=== PATIENT | female | born 1980 | race Caucasian/White ===

== ENCOUNTER 2018-08-11 10:41 | Emergency (ER) | payer OTHER, MEDICAID, SELFPAY ==
[2018-08-11 10:44] VITALS: BP 144/97; PULSE 79; RESP 18; TEMP 36.7; O2SAT 99
--- NOTE | 2018-08-11 11:01 | DI.RAD.S_ITS ---
PROCEDURE: XR CHEST 2V INDICATIONS: cough, shortness of breath for 2 weeks TECHNIQUE: 2 views of the chest were acquired. COMPARISON: None. FINDINGS: Surgical changes and devices: None. Lungs and pleura: Lungs are clear. No pleural effusions or pneumothorax. Mediastinum: Mediastinal contours are normal. Heart size is normal. Bones and chest wall: No suspicious bony abnormalities. Soft tissues appear unremarkable. IMPRESSION: Negative chest. No acute cardiopulmonary process is evident. Dictated by: Tyler Durand M.D. on 08/11/2018 at 10:49 Approved by: Tyler Durand M.D. on 08/11/2018 at 10:50
--- NOTE | 2018-08-11 11:05 | ED.SOB ---
HPI - SOB/Dyspnea <Dai Ortiz, NUTRITION PARTNER-BC - Last Filed: 08/11/18 14:49> General Chief Complaint: Shortness of Breath/Dyspnea Stated Complaint: Breathing Problems/Wheezing Time Seen by Provider: 08/11/18 10:46 Source: patient Mode of arrival: ambulatory Limitations: no limitations History of Present Illness The patient is a 38-year-old female smoker with history of wheezing and possibly asthma. She complains of worsening wheezing and increasing shortness of breath for the past 6 months. This has become worse over the past 6 days. She was seen and evaluated at [facility], on 08/07 where she had a negative CT for PE. She was started on inhaled steroids, and is not on any oral steroids. She has an albuterol inhaler at home, but has not used it yet today. She denies any fevers nausea vomiting or diarrhea other than some occasional posttussive vomiting with coughing fits. She complains of coughing fits so hard that she has muscle spasms in her chest. These happen with coughing fits only. She says that they extend around to her back and her muscles or just really ?sick of coughing for the past 6 months..She is concerned about possible exposure to fungus as well as chemicals at work. 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 Related Data Home Medications Medication Instructions Recorded Confirmed albuterol sulfate [ProAir HFA] 1 puff INHALATION PRN PRN 08/11/18 08/11/18 chlorthalidone 12.5 mg PO DAILY 08/11/18 08/11/18 duloxetine 30 mg PO QPM 08/11/18 08/11/18 fluticasone propion-salmeterol 1 puff INHALATION Q12H 08/11/18 08/11/18 [Wixela Inhub] gabapentin 300 mg PO TID 08/11/18 08/11/18 loratadine-pseudoephedrine 1 tab PO DAILY 08/11/18 08/11/18 [Claritin-D 24 Hour] propranolol 20 mg PO BID 08/11/18 08/11/18 vit C-s.[id number]-[id number] sd 1 cap PO QPM 08/11/18 08/11/18 [Tart Sandhu] Previous Rx's Medication Instructions Recorded ipratropium-albuterol 3 ml INHALATION Q4-6H PRN #90 ml 08/11/18 nebulizer accessories #1 each 08/11/18 nebulizer and compressor #1 each 08/11/18 prednisone 50 mg PO DAILY #5 tab 08/11/18 Allergies Allergy/AdvReac Type Severity Reaction Status Date / Time No Known Drug Allergies Allergy Verified 08/11/18 10:57 Review of Systems <EMY Alford - Last Filed: 08/11/18 14:49> Review of Systems GENERAL: Denies chills, fatigue, malaise, fever, sweats. HEENT: Denies sinus pain, ear pain, sore throat, difficulty swallowing, dizziness. RESPIRATORY: See HPI CARDIOVASCULAR: Denies chest pain, palpitations, orthopnea, edema, GASTROINTESTINAL: Denies nausea, vomiting, abdominal pain, diarrhea, constipation, melena. : Denies dysuria, frequency, incontinence, hematuria, urinary retention. MUSCULOSKELETAL: denies weakness, joint pain, or bony pain SKIN: Denies rash, skin lesions, or other NEUROLOGIC: Denies weakness, headache, numbness, change in speech, confusion, seizures, incoordination. PSYCHIATRIC: No concerning psychosocial issues. 12 point review of systems is negative except for those stated above PFSH <EMY Alford - Last Filed: 08/11/18 14:49> Surgical History History of third molar tooth extraction Social History Smoking Status: Current every day smoker Social History Smoking Status: Current every day smoker Exam <EMY Alford - Last Filed: 08/11/18 14:49> Narrative Exam Narrative: GENERAL: This is a well-nourished, well-developed patient, sitting on side of bed in no acute distress HEAD: Atraumatic. Normocephalic. No temporal or scalp tenderness. EYES: Pupils equal round and reactive. Extraocular motions intact. No scleral icterus. No injection or drainage. ENT: Nose without bleeding, purulent drainage or septal hematoma. Throat without erythema, tonsillar hypertrophy or exudate. Uvula midline. Airway patent. NECK: Trachea midline. No JVD or lymphadenopathy. Supple, nontender, no meningeal signs. CARDIOVASCULAR: Regular rate and rhythm without murmurs, gallops, or rubs. RESPIRATORY: Clear to auscultation. Breath sounds equal bilaterally. expiratory wheezes all kim bilaterally. No accessory muscle use. No stridor. Cough on exam. GASTROINTESTINAL: Abdomen soft, non-tender, nondistended. No hepato-splenomegaly, or palpable masses. No guarding. EXTREMITIES: No clubbing, cyanosis, or edema. No joint tenderness, effusion, or edema noted. BACK: Nontender without deformity or crepitance. No flank tenderness. NEURO: AOx3. SKIN: No rash or erythema. Initial Vital Signs Initial Vital Signs: Vital Signs Temperature 98.0 F 08/11/18 10:44 Pulse Rate 79 08/11/18 10:44 Respiratory Rate 18 08/11/18 10:44 Blood Pressure 144/97 H 08/11/18 10:44 Pulse Oximetry 99 08/11/18 10:44 <Kavita Wyatt MD - Last Filed: 08/11/18 19:50> Initial Vital Signs Initial Vital Signs: Vital Signs Temperature 98.0 F 08/11/18 10:44 Pulse Rate 79 08/11/18 10:44 Respiratory Rate 18 08/11/18 10:44 Blood Pressure 144/97 H 08/11/18 10:44 Pulse Oximetry 99 08/11/18 10:44 Scores <EMY Alford - Last Filed: 08/11/18 14:49> Wells' Criteria for PE Clinical signs and symptoms of PE: No PE is #1 Dx or equally likely: No Heart rate > 100: No Immobilization at least 3 days or surg in previous 4 weeks: No History of PE or DVT: No Hemoptysis: No Malignancy w/Treatment within 6 months or palliative: No Wells' PE Score total: 0 Course <EMY Alford - Last Filed: 08/11/18 14:49> Orders Ordered: ED Orders 08/11/18 10:56 RT Consult Eval and Treat Now 08/11/18 11:01 XR chest 2V Stat 08/11/18 11:37 Urine Microscopic Stat 08/11/18 12:32 Sputum Culture Stat Discontinued Medications Albuterol/Ipratropium (Duoneb) 3 ml INH NOW ONE Stop: 08/11/18 11:01 Last Admin: 08/11/18 11:11 Dose: 3 ml Benzonatate (Tessalon Perles) 100 mg PO NOW ONE Stop: 08/11/18 11:49 Last Admin: 08/11/18 12:24 Dose: 100 mg Prednisone (Deltasone) 60 mg PO NOW ONE Stop: 08/11/18 11:00 Last Admin: 08/11/18 11:12 Dose: 60 mg Vital Signs - 8 hr 08/11/18 12:24 Temperature 98.3 F Pulse Rate 72 Respiratory Rate 16 Blood Pressure [Left Arm] 120/76 Pulse Oximetry 98 <Kavita Wyatt MD - Last Filed: 08/11/18 19:50> Orders Ordered: ED Orders 08/11/18 10:56 RT Consult Eval and Treat Now 08/11/18 11:01 XR chest 2V Stat 08/11/18 11:37 Urine Microscopic Stat 08/11/18 12:32 Sputum Culture Stat Discontinued Medications Albuterol/Ipratropium (Duoneb) 3 ml INH NOW ONE Stop: 08/11/18 11:01 Last Admin: 08/11/18 11:11 Dose: 3 ml Benzonatate (Tessalon Perles) 100 mg PO NOW ONE Stop: 08/11/18 11:49 Last Admin: 08/11/18 12:24 Dose: 100 mg Prednisone (Deltasone) 60 mg PO NOW ONE Stop: 08/11/18 11:00 Last Admin: 08/11/18 11:12 Dose: 60 mg Vital Signs - 8 hr 08/11/18 12:24 Temperature 98.3 F Pulse Rate 72 Respiratory Rate 16 Blood Pressure [Left Arm] 120/76 Pulse Oximetry 98 MDM - SOB/Dyspnea <EMY Alford - Last Filed: 08/11/18 14:49> Lab Data Lab Results 08/11/18 Range/Units 11:37 Urine RBC 0-1/hpf (0-5/HPF) Urine WBC None seen (0-5/HPF) Ur Squamous Epith Cells 0-1 /hpf (0-5/HPF) Urine Bacteria None seen (None) Ur Culture Indicated? Cult not indicated Point of Care Testing Test Results Negative Urine Dip Bedside Urine Glucose Negative Bedside Urine Bilirubin - Negative Bedside Urine Ketone - Negative Urine Specific [place] 1.030 Bedside Urine Occult Blood +/- Bedside Urine pH 6.0 Bedside Urine Protein - Negative Bedside Urine Urobilinogen - Negative Bedside Urine Nitrite - Negative Bedside Urine Leukocytes - Negative Esterase Imaging Data Chest x-ray: Radiologist's impression: [address] [address] XRay Report Signed Patient: Luh Mukherjee [facility]#: [id number] : 07/28/1975Acct:[id number] Age/Sex: 43 / FDate of Service: 08/11/18 Loc: ED Accession Number: [id number] Procedure: XR chest 2V Ordering Provider: Kavita Wytat MD PROCEDURE: XR CHEST 2V INDICATIONS: heart racing, chest heaviness TECHNIQUE: 2 views of the chest were acquired. COMPARISON: None. FINDINGS: Surgical changes and devices: None. Lungs and pleura: Lungs are clear. No pleural effusions or pneumothorax. Mediastinum: Mediastinal contours are normal. Heart size is normal. Bones and chest wall: No suspicious bony abnormalities. Soft tissues appear unremarkable. IMPRESSION: 1. No acute cardiopulmonary disease. Dictated by: Christiano Sevilla M.D. on 08/11/2018 at 14:39 Approved by: Christiano Sevilla M.D. on 08/11/2018 at 14:39 [facility] Narrative Medical decision making narrative: The patient is a 38-year-old female who presents with progressive wheezing and shortness of breath for the past 6 months. She is a recent negative CTPA and is not tachycardic and not hypoxic. I did obtain another chest x-ray given her worsening over the past few days as well as a respiratory therapy consult nebulizer treatment. She was started on inhaled steroids without an oral steroid bridge other than her single dose IM. The patient was treated in the emergency department nebulizers and given spacer teaching by the respiratory therapist. Given the significance of her wheezing, I did discharge her with a prescription for a nebulizer as well as nebulizer treatments. I did place her on a burst of prednisone. I did discuss the importance of speaking with her primary care provider in following up on the pulmonology referral as they have made as I think this would likely benefit the patient. Discussed return precautions of worsening or no improvement. We did send off a sputum culture. Patient was ambulating around the emergency department prior to discharge. <Kavita Wyatt MD - Last Filed: 08/11/18 19:50> Lab Data Lab Results 08/11/18 Range/Units 11:37 Urine RBC 0-1/hpf (0-5/HPF) Urine WBC None seen (0-5/HPF) Ur Squamous Epith Cells 0-1 /hpf (0-5/HPF) Urine Bacteria None seen (None) Ur Culture Indicated? Cult not indicated Point of Care Testing Test Results Negative Urine Dip Bedside Urine Glucose Negative Bedside Urine Bilirubin - Negative Bedside Urine Ketone - Negative Urine Specific [place] 1.030 Bedside Urine Occult Blood +/- Bedside Urine pH 6.0 Bedside Urine Protein - Negative Bedside Urine Urobilinogen - Negative Bedside Urine Nitrite - Negative Bedside Urine Leukocytes - Negative Esterase Discharge Plan Departure Patient Disposition: Home Clinical Impression: Bilateral wheezing Discharge Date/Time: 08/11/18 13:15 Interventions: ED Discharge Assessment Last Done: 08/11/18 13:14 Instructions: DI for Asthma -- Adult, DI for Shortness of Breath, How to Manage Shortness of Breath Activity Restrictions/Additional Instructions: Your chest x-ray shows no pneumonia. I am giving a burst of steroids to help while you transition to use of inhaled steroids. Please use your albuterol inhaler with the provided spacer every 4 hours as needed. Please follow up with your primary care provider soon as possible. The sputum culture will result in about 48-36 hours. If anything comes up such as the fungus you are concerned about, this will come up in the culture. Please pace yourself and your activities. you may benefit from wearing a mask at work to help reduce chemical exposure. I have given you a work note for few days off of work in order to help your lungs heel. Please follow up with your PCP's referral for a strategic solutions consultant. I have also given you a prescription for home nebulizer as well as nebulizer treatments. You can use this instead of your inhaler. Come back to emergency department for any acute concerns such as concern of heart attack or stroke or severe difficulty breathing. Prescriptions: New prednisone 50 mg tablet 50 mg PO DAILY Qty: 5 RF: 0 ipratropium-albuterol 0.5 mg-3 mg(2.5 mg base)/3 mL solution for nebulization 3 ml INHALATION Q4-6H PRN (Reason: shortness of breath or wheezing) Qty: 90 RF: 0 nebulizer and compressor device .ROUTE .MEDSUPPLY Qty: 1 RF: 0 nebulizer accessories misc .ROUTE .MEDSUPPLY Qty: 1 RF: 0 No Action fluticasone propion-salmeterol [Wixela Inhub] 250-50 mcg/dose blister with device 1 puff Inhalation Q12H RF: 0 chlorthalidone 25 mg tablet 12.5 mg PO DAILY RF: 0 gabapentin 100 mg capsule 300 mg PO TID RF: 0 albuterol sulfate [ProAir HFA] 90 mcg/actuation HFA aerosol inhaler 1 puff Inhalation PRN PRN (Reason: Shortness Of Breath) RF: 0 propranolol 20 mg tablet 20 mg PO BID RF: 0 duloxetine 30 mg capsule,delayed release(DR/EC) 30 mg PO QPM RF: 0 loratadine-pseudoephedrine [Claritin-D 24 Hour] 10-240 mg Tablet Extended Release 24 Hr 1 tab PO DAILY RF: 0 Tart Sandhu 28-515-75-75-20 mg Capsule 1 cap PO QPM RF: 0 Stand Alone Forms: Work Release Note
--- NOTE | 2018-08-11 11:08 | ED_ITS ---
HPI - SOB/Dyspnea <Dai Ortiz, [employer] - Last Filed: 08/11/18 14:49> General Chief Complaint: Shortness of Breath/Dyspnea Stated Complaint: Breathing Problems/Wheezing Time Seen by Provider: 08/11/18 10:46 Source: patient Mode of arrival: ambulatory Limitations: no limitations History of Present Illness The patient is a 38-year-old female smoker with history of wheezing and possibly asthma. She complains of worsening wheezing and increasing shortness of breath for the past 6 months. This has become worse over the past 6 days. She was seen and evaluated at [place], on 08/07 where she had a negative CT for PE. She was started on inhaled steroids, and is not on any oral steroids. She has an albuterol inhaler at home, but has not used it yet today. She denies any fevers nausea vomiting or diarrhea other than some occasional posttussive vomiting with coughing fits. She complains of coughing fits so hard that she has muscle spasms in her chest. These happen with coughing fits only. She says that they extend around to her back and her muscles or just really ?sick of coughing for the past 6 months..She is concerned about possible exposure to fungus as well as chemicals at work. 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 Related Data Home Medications Medication Instructions Recorded Confirmed albuterol sulfate [ProAir HFA] 1 puff INHALATION PRN PRN 08/11/18 08/11/18 chlorthalidone 12.5 mg PO DAILY 08/11/18 08/11/18 duloxetine 30 mg PO QPM 08/11/18 08/11/18 fluticasone propion-salmeterol 1 puff INHALATION Q12H 08/11/18 08/11/18 [Wixela Inhub] gabapentin 300 mg PO TID 08/11/18 08/11/18 loratadine-pseudoephedrine 1 tab PO DAILY 08/11/18 08/11/18 [Claritin-D 24 Hour] propranolol 20 mg PO BID 08/11/18 08/11/18 vit C-s.jimlhg-[id number]-thhla sd 1 cap PO QPM 08/11/18 08/11/18 [Tart Sandhu] Previous Rx's Medication Instructions Recorded ipratropium-albuterol 3 ml INHALATION Q4-6H PRN #90 ml 08/11/18 nebulizer accessories #1 each 08/11/18 nebulizer and compressor #1 each 08/11/18 prednisone 50 mg PO DAILY #5 tab 08/11/18 Allergies Allergy/AdvReac Type Severity Reaction Status Date / Time No Known Drug Allergies Allergy Verified 08/11/18 10:57 Review of Systems <EMY Alford - Last Filed: 08/11/18 14:49> Review of Systems GENERAL: Denies chills, fatigue, malaise, fever, sweats. HEENT: Denies sinus pain, ear pain, sore throat, difficulty swallowing, dizziness. RESPIRATORY: See HPI CARDIOVASCULAR: Denies chest pain, palpitations, orthopnea, edema, GASTROINTESTINAL: Denies nausea, vomiting, abdominal pain, diarrhea, constipation, melena. : Denies dysuria, frequency, incontinence, hematuria, urinary retention. MUSCULOSKELETAL: denies weakness, joint pain, or bony pain SKIN: Denies rash, skin lesions, or other NEUROLOGIC: Denies weakness, headache, numbness, change in speech, confusion, seizures, incoordination. PSYCHIATRIC: No concerning psychosocial issues. 12 point review of systems is negative except for those stated above PFSH <EMY Alford - Last Filed: 08/11/18 14:49> Surgical History History of third molar tooth extraction Social History Smoking Status: Current every day smoker Social History Smoking Status: Current every day smoker Exam <EMY Alford - Last Filed: 08/11/18 14:49> Narrative Exam Narrative: GENERAL: This is a well-nourished, well-developed patient, sitting on side of bed in no acute distress HEAD: Atraumatic. Normocephalic. No temporal or scalp tenderness. EYES: Pupils equal round and reactive. Extraocular motions intact. No scleral icterus. No injection or drainage. ENT: Nose without bleeding, purulent drainage or septal hematoma. Throat without erythema, tonsillar hypertrophy or exudate. Uvula midline. Airway patent. NECK: Trachea midline. No JVD or lymphadenopathy. Supple, nontender, no meningeal signs. CARDIOVASCULAR: Regular rate and rhythm without murmurs, gallops, or rubs. RESPIRATORY: Clear to auscultation. Breath sounds equal bilaterally. expiratory wheezes all kim bilaterally. No accessory muscle use. No stridor. Cough on exam. GASTROINTESTINAL: Abdomen soft, non-tender, nondistended. No hepato- splenomegaly, or palpable masses. No guarding. EXTREMITIES: No clubbing, cyanosis, or edema. No joint tenderness, effusion, or edema noted. BACK: Nontender without deformity or crepitance. No flank tenderness. NEURO: AOx3. SKIN: No rash or erythema. Initial Vital Signs Initial Vital Signs: Vital Signs Temperature 98.0 F 08/11/18 10:44 Pulse Rate 79 08/11/18 10:44 Respiratory Rate 18 08/11/18 10:44 Blood Pressure 144/97 H 08/11/18 10:44 Pulse Oximetry 99 08/11/18 10:44 <Kavita Wyatt MD - Last Filed: 08/11/18 19:50> Initial Vital Signs Initial Vital Signs: Vital Signs Temperature 98.0 F 08/11/18 10:44 Pulse Rate 79 08/11/18 10:44 Respiratory Rate 18 08/11/18 10:44 Blood Pressure 144/97 H 08/11/18 10:44 Pulse Oximetry 99 08/11/18 10:44 Scores <EMY Alford - Last Filed: 08/11/18 14:49> Wells' Criteria for PE Clinical signs and symptoms of PE: No PE is #1 Dx or equally likely: No Heart rate > 100: No Immobilization at least 3 days or surg in previous 4 weeks: No History of PE or DVT: No Hemoptysis: No Malignancy w/Treatment within 6 months or palliative: No Wells' PE Score total: 0 Course <EMY Alford - Last Filed: 08/11/18 14:49> Orders Ordered: ED Orders 08/11/18 10:56 RT Consult Eval and Treat Now 08/11/18 11:01 XR chest 2V Stat 08/11/18 11:37 Urine Microscopic Stat 08/11/18 12:32 Sputum Culture Stat Discontinued Medications Albuterol/Ipratropium (Duoneb) 3 ml INH NOW ONE Stop: 08/11/18 11:01 Last Admin: 08/11/18 11:11 Dose: 3 ml Benzonatate (Tessalon Perles) 100 mg PO NOW ONE Stop: 08/11/18 11:49 Last Admin: 08/11/18 12:24 Dose: 100 mg Prednisone (Deltasone) 60 mg PO NOW ONE Stop: 08/11/18 11:00 Last Admin: 08/11/18 11:12 Dose: 60 mg Vital Signs - 8 hr 08/11/18 12:24 Temperature 98.3 F Pulse Rate 72 Respiratory Rate 16 Blood Pressure [Left Arm] 120/76 Pulse Oximetry 98 <Kavita Wyatt MD - Last Filed: 08/11/18 19:50> Orders Ordered: ED Orders 08/11/18 10:56 RT Consult Eval and Treat Now 08/11/18 11:01 XR chest 2V Stat 08/11/18 11:37 Urine Microscopic Stat 08/11/18 12:32 Sputum Culture Stat Discontinued Medications Albuterol/Ipratropium (Duoneb) 3 ml INH NOW ONE Stop: 08/11/18 11:01 Last Admin: 08/11/18 11:11 Dose: 3 ml Benzonatate (Tessalon Perles) 100 mg PO NOW ONE Stop: 08/11/18 11:49 Last Admin: 08/11/18 12:24 Dose: 100 mg Prednisone (Deltasone) 60 mg PO NOW ONE Stop: 08/11/18 11:00 Last Admin: 08/11/18 11:12 Dose: 60 mg Vital Signs - 8 hr 08/11/18 12:24 Temperature 98.3 F Pulse Rate 72 Respiratory Rate 16 Blood Pressure [Left Arm] 120/76 Pulse Oximetry 98 MDM - SOB/Dyspnea <EMY Alford - Last Filed: 08/11/18 14:49> Lab Data Lab Results 08/11/18 Range/Units 11:37 Urine RBC 0-1/hpf (0-5/HPF) Urine WBC None seen (0-5/HPF) Ur Squamous Epith Cells 0-1 /hpf (0-5/HPF) Urine Bacteria None seen (None) Ur Culture Indicated? Cult not indicated Point of Care Testing Test Results Negative Urine Dip Bedside Urine Glucose Negative Bedside Urine Bilirubin - Negative Bedside Urine Ketone - Negative Urine Specific [place] 1.030 Bedside Urine Occult Blood +/- Bedside Urine pH 6.0 Bedside Urine Protein - Negative Bedside Urine Urobilinogen - Negative Bedside Urine Nitrite - Negative Bedside Urine Leukocytes - Negative Esterase Imaging Data Chest x-ray: Radiologist's impression: [address] [address] XRay Report Signed Patient: Luh Mukherjee [facility]#: [id number] : 07/28/1975Acct:[id number] Age/Sex: 43 / FDate of Service: 08/11/18 Loc: ED Accession Number: [id number] Procedure: XR chest 2V Ordering Provider: Kavita Wyatt MD PROCEDURE: XR CHEST 2V INDICATIONS: heart racing, chest heaviness TECHNIQUE: 2 views of the chest were acquired. COMPARISON: None. FINDINGS: Surgical changes and devices: None. Lungs and pleura: Lungs are clear. No pleural effusions or pneumothorax. Mediastinum: Mediastinal contours are normal. Heart size is normal. Bones and chest wall: No suspicious bony abnormalities. Soft tissues appear unremarkable. IMPRESSION: 1. No acute cardiopulmonary disease. Dictated by: Christiano Sevilla M.D. on 08/11/2018 at 14:39 Approved by: Christiano Sevilla M.D. on 08/11/2018 at 14:39 [facility] Narrative Medical decision making narrative: The patient is a 38-year-old female who presents with progressive wheezing and shortness of breath for the past 6 months. She is a recent negative CTPA and is not tachycardic and not hypoxic. I did obtain another chest x-ray given her worsening over the past few days as well as a respiratory therapy consult nebulizer treatment. She was started on inhaled steroids without an oral steroid bridge other than her single dose IM. The patient was treated in the emergency department nebulizers and given spacer teaching by the respiratory therapist. Given the significance of her wheezing, I did discharge her with a prescription for a nebulizer as well as nebulizer treatments. I did place her on a burst of prednisone. I did discuss the importance of speaking with her primary care provider in following up on the pulmonology referral as they have made as I think this would likely benefit the patient. Discussed return precautions of worsening or no improvement. We did send off a sputum culture. Patient was ambulating around the emergency department prior to discharge. <Kavita Wyatt MD - Last Filed: 08/11/18 19:50> Lab Data Lab Results 08/11/18 Range/Units 11:37 Urine RBC 0-1/hpf (0-5/HPF) Urine WBC None seen (0-5/HPF) Ur Squamous Epith Cells 0-1 /hpf (0-5/HPF) Urine Bacteria None seen (None) Ur Culture Indicated? Cult not indicated Point of Care Testing Test Results Negative Urine Dip Bedside Urine Glucose Negative Bedside Urine Bilirubin - Negative Bedside Urine Ketone - Negative Urine Specific [place] 1.030 Bedside Urine Occult Blood +/- Bedside Urine pH 6.0 Bedside Urine Protein - Negative Bedside Urine Urobilinogen - Negative Bedside Urine Nitrite - Negative Bedside Urine Leukocytes - Negative Esterase Discharge Plan Departure Patient Disposition: Home Clinical Impression: Bilateral wheezing Discharge Date/Time: 08/11/18 13:15 Interventions: ED Discharge Assessment Last Done: 08/11/18 13:14 Instructions: DI for Asthma -- Adult, DI for Shortness of Breath, How to Manage Shortness of Breath Activity Restrictions/Additional Instructions: Your chest x-ray shows no pneumonia. I am giving a burst of steroids to help while you transition to use of inhaled steroids. Please use your albuterol inhaler with the provided spacer every 4 hours as needed. Please follow up with your primary care provider soon as possible. The sputum culture will result in about 48-36 hours. If anything comes up such as the fungus you are concerned about, this will come up in the culture. Please pace yourself and your activities. you may benefit from wearing a mask at work to help reduce chemical exposure. I have given you a work note for few days off of work in order to help your lungs heel. 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 I have also given you a prescription for home nebulizer as well as nebulizer treatments. You can use this instead of your inhaler. Come back to emergency department for any acute concerns such as concern of heart attack or stroke or severe difficulty breathing. Prescriptions: New prednisone 50 mg tablet 50 mg PO DAILY Qty: 5 RF: 0 ipratropium-albuterol 0.5 mg-3 mg(2.5 mg base)/3 mL solution for nebulization 3 ml INHALATION Q4-6H PRN (Reason: shortness of breath or wheezing) Qty: 90 RF: 0 nebulizer and compressor device .ROUTE .MEDSUPPLY Qty: 1 RF: 0 nebulizer accessories misc .ROUTE .MEDSUPPLY Qty: 1 RF: 0 No Action fluticasone propion-salmeterol [Wixela Inhub] 250-50 mcg/dose blister with device 1 puff Inhalation Q12H RF: 0 chlorthalidone 25 mg tablet 12.5 mg PO DAILY RF: 0 gabapentin 100 mg capsule 300 mg PO TID RF: 0 albuterol sulfate [ProAir HFA] 90 mcg/actuation HFA aerosol inhaler 1 puff Inhalation PRN PRN (Reason: Shortness Of Breath) RF: 0 propranolol 20 mg tablet 20 mg PO BID RF: 0 duloxetine 30 mg capsule,delayed release(DR/EC) 30 mg PO QPM RF: 0 loratadine-pseudoephedrine [Claritin-D 24 Hour] 10-240 mg Tablet Extended Release 24 Hr 1 tab PO DAILY RF: 0 Tart Sandhu 05-520-01-75-20 mg Capsule 1 cap PO QPM RF: 0 Stand Alone Forms: Work Release Note
[2018-08-11] MEDS: ALBUTEROL/IPRATROPIUM 3 ML AMPUL INH (11:11)
[2018-08-11 11:12] VITALS: PULSE 71; RESP 12; O2SAT 98
[2018-08-11] MEDS: predniSONE 20 MG TABLET 60 MG PO (11:12)
[2018-08-11 11:49] LABS: Bacteria Urine None Seen; WBC Urine None Seen (0-5/HPF)
[2018-08-11 12:03] LABS: Culture Indicated Urine Cult Not Indicated; RBC Urine 0-1/HPF (0-5/HPF); Squamous Epithelial Cell Urine 0-1 /HPF (0-5/HPF)
[2018-08-11 12:24] VITALS: BP 120/76; PULSE 72; RESP 16; TEMP 36.8; O2SAT 98
[2018-08-11] MEDS: BENZONATATE 100 MG CAPSULE PO (12:24)
== END 2018-08-11 13:15 | disposition home or self-care (01) ==
PROVIDERS: Emergency Provider Nurse Practitioner Family
DX: R06.2 Wheezing (principal); R05 Cough; R06.02 Shortness of breath
CPT/HCPCS: 71046; 81003; 81015; 81025; 87070; 87205; 94640; 99283

== ENCOUNTER → 2018-12-10 10:19 | Outpatient (CLI) | payer OTHER, SELFPAY ==
--- NOTE | 2018-12-17 15:04 | PM.PFT.1 ---
Pulmonary Function Test Referral & Results Date Patient Seen: 12/10/18 Requesting provider: Jyoti Grewal Indication: Shortness of breath Results: The spirometry demonstrates an FVC of 3.69 L which is 82% of predicted. The FEV1 was measured at 3.01 L which is 83% of predicted. The FEV1/FVC ratio was 82 which is 99% of predicted. Following the administration of bronchodilator there was no appreciable change. Lung volumes show an SVC of 3.74 L which is 92% of predicted. The diffusing capacity was measured at 24.59 which is 76% of predicted. No hemoglobin value was provided, so no correction for potential anemia could be made, if appropriate. The maximum voluntary ventilation was normal Interpretation: This study demonstrates minimal obstructive lung disease based on slight reduction in FEV1. There is no evidence of significant benefit following bronchodilator administration There is also slight reduction in diffusing capacity suggesting an element of disease at the capillary alveolar level, unless patient is anemic
== END ==
PROVIDERS: PCP Family Medicine; Visit Provider Internal Medicine
DX: R06.02 Shortness of breath (principal)
CPT/HCPCS: 94060; 94726; 94729

== ENCOUNTER → 2019-05-18 10:57 | Outpatient (CLI) | payer OTHER, MEDICAID, SELFPAY ==
--- NOTE | 2019-05-18 | DI.MG.S_ITS ---
BILATERAL DIGITAL SCREENING MAMMOGRAM 3D/2D WITH CAD: 05/18/2019 CLINICAL: Routine screening. Baseline exam. No prior exams were available for comparison. There are scattered fibroglandular elements in both breasts. Current study was also evaluated with a Computer Aided Detection (CAD) system. There is an oval low density mass with a circumscribed margin in the left breast at 2 o'clock middle depth. There also is an oval low density focal asymmetry with an indistinct and circumscribed margin in the left breast at 1 o'clock in the retroareolar region. No other significant masses, calcifications, or other findings are seen in either breast. IMPRESSION: INCOMPLETE: NEEDS ADDITIONAL IMAGING EVALUATION The oval low density mass in the left breast at 2 o'clock middle depth is indeterminate. Mediolateral and spot compression views as well as additional views with possible ultrasound are recommended. The oval low density focal asymmetry in the left breast at 1 o'clock in the retroareolar region is indeterminate. Mediolateral and spot compression views as well as additional views with possible ultrasound are recommended. This exam was interpreted at Station ID: [id number]. NOTE: For mammograms, a report in lay terms will be sent to the patient. Approximately 15% of breast malignancies will not be visualized mammographically. In the management of a palpable breast mass, a negative mammogram must not discourage biopsy of a clinically suspicious lesion. Electronically Signed By: Christiano helms/astrid:05/18/2019 14:55:05 letter sent: Additional Imaging Needed ACR BI-RADS Category 0: Incomplete 3340F
== END ==
PROVIDERS: PCP Family Medicine; Referring Provider Family Medicine; Visit Provider Family Medicine
DX: Z12.31 Encounter for screening mammogram for malignant neoplasm of breast (principal)
CPT/HCPCS: 77063; 77067

== ENCOUNTER → 2019-06-03 08:58 | Outpatient (CLI) | payer OTHER, MEDICAID, SELFPAY ==
--- NOTE | 2019-06-03 | DI.US.S_ITS ---
ULTRASOUND OF LEFT BREAST: 06/03/2019 CLINICAL: Patient returns today to evaluate 2 focal asymmetries in the left breast. Comparison is made to exams dated: 06/03/2019 mammogram and 05/18/2019 mammogram - [facility]. Color flow and real-time ultrasound of the left breast were performed. Hernandez scale images of the real-time examination were reviewed. There is a 0.9 cm x 1.2 cm x 0.4 cm wider than tall oval mass in the left breast at 1 o'clock in the retroareolar region. This oval mass is hypoechoic with internal echoes and thin septations. This correlates with mammography findings. Color flow imaging demonstrates that there is no vascularity present. No internal solid components. There also is a benign 0.7 cm x 0.7 cm x 0.6 cm oval normal lymph node in the left breast at 2 o'clock middle depth 8 cm from the nipple. This oval normal lymph node is hypoechoic with fatty hilum. This correlates with mammography findings. IMPRESSION: PROBABLY BENIGN The 0.9 cm x 1.2 cm x 0.4 cm wider than tall oval mass in the left breast at 1 o'clock in the retroareolar region most likely is a cluster of cysts or complicated cysts and are probably benign. The 0.7 cm x 0.7 cm x 0.6 cm oval normal lymph node in the left breast at 2 o'clock middle depth is consistent with a lymph node and is benign. A follow-up left mammogram and a left ultrasound in 6 months is recommended to demonstrate stability of the anterior left breast finding at the 2 o'clock position. This exam was interpreted at Station ID: [id number]. Electronically Signed By: Carmelo lal/:06/03/2019 11:08:08 letter sent: Followup Recommended Ultrasound BI-RADS: 3 Probably benign
--- NOTE | 2019-06-03 | DI.MG.S_ITS ---
UNILATERAL LEFT DIGITAL DIAGNOSTIC MAMMOGRAM 3D/2D WITH ADDITIONAL VIEWS: 06/03/2019 CLINICAL: Additional evaluation requested from prior study. Comparison is made to exam dated: 05/18/2019 mammogram - [facility]. There are scattered fibroglandular elements in left breast. There is a persistent oval focal asymmetry in the left breast at 2 o'clock in the retroareolar region. This is less prominent. There also is a persistent 0.7 cm oval equal density focal asymmetry with an obscured margin in the left breast at 3 o'clock middle depth. This appears less prominent. No other significant masses or calcifications are seen in the breast. IMPRESSION: INCOMPLETE: NEEDS ADDITIONAL IMAGING EVALUATION The oval focal asymmetry in the left breast at 2 o'clock in the retroareolar region is indeterminate. An ultrasound is recommended. The 0.7 cm oval equal density focal asymmetry in the left breast at 3 o'clock middle depth resembles a lymph node and is indeterminate. An ultrasound is recommended. The recommended ultrasound is scheduled to immediately follow this study. This exam was interpreted at Station ID: [id number]. NOTE: For mammograms, a report in lay terms will be sent to the patient. Approximately 15% of breast malignancies will not be visualized mammographically. In the management of a palpable breast mass, a negative mammogram must not discourage biopsy of a clinically suspicious lesion. Electronically Signed By: Carmelo Craft M.D. aty/:06/03/2019 11:03:43 ACR BI-RADS Category 0: Incomplete 3340F
== END ==
PROVIDERS: PCP Family Medicine; Referring Provider Family Medicine; Visit Provider Family Medicine
DX: R92.8 Other abnormal and inconclusive findings on diagnostic imaging of breast (principal); N63.21 Unspecified lump in the left breast, upper outer quadrant
CPT/HCPCS: 76642; 77065; G0279